=== PATIENT | male | born 1995 | race Caucasian/White ===

== ENCOUNTER 2024-07-21 12:18 | Emergency (ER) | payer SELFPAY ==
[2024-07-21] MEDS ORDERED: LIDOCAINE 1% 20 ML MDV ONE (12:32)
--- NOTE | 2024-07-21 13:06 | RAD REPORT ---
EXAM: XR LEFT HAND HISTORY: Pain. thumb injury COMPARISON: None TECHNIQUE: Multiple projections of the left hand submitted. FINDINGS: No evidence of acute fracture or dislocation. Joint alignment is maintained. No soft tissu e swelling is seen.. No significant degenerative changes are present. No radiopaque foreign body.
--- NOTE | 2024-07-21 13:28 | ER ---
Nurse's Notes [facility] Name: Zuleika Abreu Age: 29 yrs Sex: Male : 1995 Arrival Date: 07/21/2024 Time: 12:18 Bed 4 Private MD: Diagnosis: Laceration without foreign body of left hand Presentation: 07/21 12:31 Chief complaint: Patient states: he was doing woodwork when he cut his left thumb with ap3 a razor knife. Coronavirus screen: At this time, the client does not indicate any symptoms associated with coronavirus-19. Ebola Screen: No symptoms or risks identified at this time. Initial Sepsis Screen: Does the patient meet any 2 criteria? No. Patient's initial sepsis screen is negative. Does the patient have a suspected source of infection? No. Patient's initial sepsis screen is negative. Risk Assessment: Do you want to hurt yourself or someone else? Patient reports no desire to harm self or others. Onset of symptoms was July 21, 2024 at 12:00. 12:31 Method Of Arrival: Ambulatory ap3 12:31 Acuity: NICOLE 3 ap3 Triage Assessment: 12:32 General: Appears uncomfortable, Behavior is calm, cooperative, appropriate for age. ap3 Pain: Complains of pain in left thumb. Neuro: Level of Consciousness is awake, alert, obeys commands, Oriented to person, place, time, situation. Cardiovascular: Patient's skin is warm and dry. Respiratory: Airway is patent Respiratory effort is even, unlabored, Respiratory pattern is regular, symmetrical. Injury Description: Laceration sustained to left thumb. Historical: - Allergies: 12:32 No Known Allergies; ap3 - Home Meds: 12:32 None [Active]; ap3 - PMHx: 12:32 None; ap3 - Immunization history:: Last tetanus immunization: up to date. - Infectious Disease History:: Denies. - Social history:: Smoking status: Reported history of juuling and/or vaping. Screenin:[facility] ED Fall Risk Assessment (Adult) History of falling in the last 3 months, ap3 including since admission No falls in past 3 months (0 pts) Confusion or Disorientation No (0 pts) Intoxicated or Sedated No (0 pts) Impaired Gait No (0 pts) Mobility Assist Device Used No (0 pt) Altered Elimination No (0 pt) Score/Fall Risk Level 0 - 2 = Low Risk Oriented to surroundings, Maintained a safe environment, Educated pt \T\ family on fall prevention, incl call for assistance when getting out of bed, Assessed \T\ reinforced patient's understanding of fall precautions, Hourly rounding (assess needs \T\ fall precautionary measures) done, Used ambulatory aids as needed (educated on \T\ assisted with), Used gait belt as appropriate. Abuse screen: Denies threats or abuse. Nutritional screening: No deficits noted. Tuberculosis screening: No symptoms or risk factors identified. Assessment: 12:45 General: Appears in no apparent distress. Behavior is calm, cooperative, appropriate ko1 for age. Pain: Complains of pain in left thumb. Neuro: No deficits noted. Cardiovascular: No deficits noted. Respiratory: No deficits noted. GI: No deficits noted. : No deficits noted. EENT: No deficits noted. Derm: No deficits noted. Musculoskeletal: No deficits noted. Vital Signs: 12:31 BP 150 / 84; Pulse 54; Resp 17; Temp 97.6; Pulse Ox 100% ; Weight 113.4 kg; Height 5 ap3 ft. 11 in. ; 12:45 BP 138 / 78; Pulse 64; Resp 15; Pulse Ox 99% ; ko1 12:31 Body Mass Index 34.87 (113.40 kg, 180.34 cm) ap3 ED Course: 12:19 Patient arrived in ED. ra3 12:20 Filiberto Ortega MD is Attending Physician. ec2 12:24 Tran Anderson, LUCIAN is Primary Nurse. ko1 12:32 Triage completed. ap3 12:33 Arm band placed on right wrist. ap3 12:45 Patient has correct armband on for positive identification. Bed in low position. Call ko1 light in reach. Side rails up X2. Provided Education on: sutures. Pulse ox on. NIBP on. Door closed. Noise minimized. Lights dimmed. 12:45 Assist provider with laceration repair on left thumb using sutures. Set up tray. ko1 Performed by Filiberto Ortega MD Dressed with 4X4s, Kerlix, Patient tolerated well. Patient did not have IV access during this emergency room visit. 13:02 Hand Left 3 View XRAY In Process Unspecified. EDMS Administered Medications: 13:15 Drug: Lidocaine Infiltration (1 %) 10 ml 20 ml Infiltration once; to bedside {Note: ko1 given by Dr Ortega.} Volume: 20 ml; Route: Infiltration; 13:46 Follow up: Response: No adverse reaction ko1 13:50 Drug: Ketorolac IM 30 mg IM once Route: IM; Site: left deltoid; ko1 14:12 Follow up: Response: No adverse reaction ko1 Medication: 12:45 VIS not applicable for this client. ko1 Outcome: 13:27 Discharge ordered by . svitlana 14:12 Discharged to home ambulatory, ko1 14:12 Condition: stable 14:12 Discharge instructions given to patient, Instructed on discharge instructions, follow up and referral plans. medication usage, wound care, Demonstrated understanding of instructions, follow-up care, medications, wound care, 14:13 Patient left the ED. ko1 Signatures: Dispatcher [employer] Ninfa Garcia RN RN ap3 Tran Anderson RN RN ko1 Filiberto Ortega MD MD ec2 Dianne Kebede ra
--- NOTE | 2024-07-21 13:28 | EDPHYS ---
Physician Documentation [facility] Name: Zuleika Abreu Age: 29 yrs Sex: Male : 1995 Arrival Date: 07/21/2024 Time: 12:18 Bed 4 Private MD: ED Physician Filiberto Ortega HPI: 07/21 12:28 This 29 yrs old Male presents to ER via Unassigned with complaints of Thumb ec2 Injury - Left. 12:28 Patient arrives today for evaluation of a hand injury. Patient reports that he ec2 accidentally cut the left thumb with a razor blade. Reports he is up-to-date on his tetanus shot. Patient reports otherwise no other injuries.. Historical: - Allergies: 12:32 No Known Allergies; ap3 - Home Meds: 12:32 None [Active]; ap3 - PMHx: 12:32 None; ap3 - Immunization history:: Last tetanus immunization: up to date. - Infectious Disease History:: Denies. - Social history:: Smoking status: Reported history of juuling and/or vaping. ROS: 12:28 Constitutional: as per hpi ec2 Exam: 12:28 Constitutional: GEN: NAD Head: atraumatic Eyes: EOMI Ears: External ears are ec2 normal. CV: regular rate LUNGS: no respiratory distress ABD: non-distended SKIN: Approximately 4 cm laceration to the left inner thumb. Intact range of motion, intact sensation MSK: no evidence of trauma Vital Signs: 12:31 BP 150 / 84; Pulse 54; Resp 17; Temp 97.6; Pulse Ox 100% ; Weight 113.4 kg; Height 5 ap3 ft. 11 in. ; 12:45 BP 138 / 78; Pulse 64; Resp 15; Pulse Ox 99% ; ko1 12:31 Body Mass Index 34.87 (113.40 kg, 180.34 cm) ap3 Laceration: 13:26 Wound Repair of 4cm ( 1.6in ) subcutaneous laceration to left hand. Distal ec2 neuro/vascular/tendon intact. Anesthesia: Regional Block with 20 mls of 1% lidocaine. Wound prep: Extensive cleansing by nurse by oh. Skin closed with 5 4-0 chromic gut using simple sutures and sterile technique. Dressed with non-adherent dressing. Patient tolerated well. MDM: 12:27 Medical Screening Exam initiated ec2 12:28 Data reviewed: vital signs, nurses notes. ED course: Patient arrives today for ec2 evaluation of a left hand injury. Examination remarkable for skin findings as above. Will clean the wound, perform a nerve block, obtain radiograph and repaired the laceration. Differential diagnosis includes laceration, bony fracture. Will forego tetanus update given up-to-date on status.. 13:27 ED course: Laceration repaired with 5 absorbable sutures without issue. Will discharge ec2 home. Return precautions given.. 07/21 12:27 Order name: Hand Left 3 View XRAY; Complete Time: 13:08 ec2 07/21 12:28 Order name: Wound Care; Complete Time: 12:29 ec2 07/21 13:26 Order name: Misc. Order: non-adherent and bulky gauze dressing; Complete Time: 14:03 ec2 Administered Medications: 13:15 Drug: Lidocaine Infiltration (1 %) 10 ml 20 ml Infiltration once; to bedside {Note: ko1 given by Dr Ortega.} Volume: 20 ml; Route: Infiltration; 13:46 Follow up: Response: No adverse reaction ko1 13:50 Drug: Ketorolac IM 30 mg IM once Route: IM; Site: left deltoid; ko1 14:12 Follow up: Response: No adverse reaction ko1 Disposition Summary: 07/21/24 13:27 Discharge Ordered Notes: Location: Home ec2 Condition: Stable ec2 Diagnosis - Laceration without foreign body of left hand ec2 Followup: ec2 - With: Private Physician - When: - Reason: Re-evaluation by your physician Discharge Instructions: - Discharge Summary Sheet ec2 - Laceration Care, Adult, [id number] ec2 Forms: - Medication Reconciliation Form ec2 - Antibiotic Education ec2 - Prescription Opioid Use ec2 - Patient Portal Instructions ec2 - Leadership Thank You Letter ec2 Signatures: Dispatcher [employer] Ninfa Garcia RN RN ap3 Tran Anderson RN RN ko1 Filiberto Ortega MD MD ec2
[2024-07-21] MEDS ORDERED: KETOROLAC 30 MG/ML INJ ONE (13:50)
[2024-07-21 14:17] VITALS: TEMP 97.6
[2024-07-21 14:18] VITALS: BP 138/78; O2SAT 99
== END 2024-07-21 14:13 | disposition home or self-care (01) ==
LOC: ER 12:18
PROC: 0JQK0ZZ Repair Left Hand Subcutaneous Tissue and Fascia, Open Approach (ICD-10-PCS; principal; 2024-07-21)
DX: S61.012A Laceration without foreign body of left thumb without damage to nail, initial encounter (principal); W26.0XXA Contact with knife, initial encounter; Y93.9 Activity, unspecified; Y92.9 Unspecified place or not applicable
CPT/HCPCS: 12042; 96372; 99284; J2003